=== PATIENT | female | born 1960 | race African-American/Black ===

== ENCOUNTER 2024-02-20 02:57 | Emergency (ER) | payer MEDICARE, MEDICAID ==
[~2024-02-20] VITALS: Ht 162.6 cm; Wt 76.0 kg
[~2024-02-20 02:57] MED LIST: KETO15VI22 IM; MEPE50TA2 PO
[2024-02-20 03:01] VITALS: BP 153/70; PULSE 81; RESP 16; TEMP 98.2; O2SAT 98
== END 2024-02-20 04:06 | disposition left against medical advice (07) ==
LOC: ER 02:57
DX: R10.9 Unspecified abdominal pain (principal); Z53.21 Procedure and treatment not carried out due to patient leaving prior to being seen by health care provider